=== PATIENT | female | born 1940 | race Caucasian/White ===

== ENCOUNTER 2021-12-24 07:46 | Emergency (ER) | payer OTHER, SELFPAY ==
--- NOTE | ~2021-12-24 | XR_ITS ---
XR foot LT min 3V DATE: 12/24/2021 08:04 INDICATION: Left foot pain and swelling TECHNIQUE: 4 views COMPARISON: None FINDINGS: Anterior and posterior tibial and dorsalis pedis artery calcifications in addition to some metatarsal artery calcification. Mild to moderate nonspecific soft tissue swelling of the foot. Osteopenia. Mild hallux valgus and bunion deformity. Mild osteoarthritis at the first metatarsophalangeal joint. Osteophytic change at some tarsal and tarsometatarsal joints. Minimal plantar calcaneal enthesopathy. No fracture, dislocation, periosteal reaction or bone destruction. IMPRESSION: Moderate soft tissue swelling Anterior and posterior tibial and dorsalis pedis artery and metatarsal artery calcifications; conside r diabetes Mild hallux valgus and bunion deformity Mild osteoarthritis at first metatarsophalangeal joint and some tarsal and tarsometatarsal joints Minimal plantar calcaneal enthesopathy Reviewed, dictated and finalized at location A. IMPRESSION: Moderate soft tissue swelling Anterior and posterior tibial and dorsalis pedis artery and metatarsal artery c alcifications; consider diabetes Mild hallux valgus and bunion deformity Mild osteoarthritis at first metatarsophalangeal joint and some tarsal and tars ometatarsal joints Minimal plantar calcaneal enthesopathy
[2021-12-24 07:46] VITALS: BP 193/63; PULSE 68; RESP 20; TEMP 37.2; O2SAT 97
--- NOTE | 2021-12-24 07:53 | ED.GENADULT ---
HPI - General Adult General Chief complaint: Extremity Problem,Nontraumatic Stated complaint: ambulance Time Seen by Provider: 12/24/21 07:51 History of Present Illness HPI narrative: Chelly is a 81F with a history of bladder cancer s/p treatment, pacemaker, HTN and gout that presented to the ED via EMS for left foot pain. She has had chronic pain in her left foot since 2014. It woke her up at 0400 this morning. Pain is worse on the anterior mid foot and goes up the leg. No recent injury. It is more painful than previous gout attacks. No prolonged sitting or immobilization. No CP, SOB or falls. Related Data Home Medications Medication Instructions Recorded Confirmed carvedilol 6.25 mg tablet 1 tablet PO DAILY 12/24/21 12/24/21 hydrocodone 10 mg-acetaminophen 1 tablet PO DIRECTED 12/24/21 12/24/21 325 mg tablet Allergies Allergy/AdvReac Type Severity Reaction Status Date / Time allopurinol Allergy Unknown RASH Verified 04/08/11 14:44 Review of Systems Review of Systems: All systems reviewed & are unremarkable except as noted in HPI and below Exam Const: General: healthy appearing and no acute distress Nutritional Appearance: well nourished HENMT: Head: normal to inspection Ears: external ears normal General nose exam: Normal external nose present Eyes: Conjunctivae: conjunctivae normal Pupils: Equal, round and reactive pupils present EOM: EOMs intact bilaterally Neck: Neck: normal visual inspection Chest: Chest palpation & inspection: normal inspection of the chest Resp: Effort & Inspection: normal respiratory effort Cardio: Rate: regular rate Skin: General skin exam: normal color Neuro: General: patient oriented x3 and moves all extremities Extrem: Other: Left foot was swollen and warm to the touch and was very TTP. No erythema noted. Psych: Mental Status: mental status grossly normal Course Course Emergency Course: Ordered [facility] for pain, bloodwork and radiographs IMPRESSION: Moderate soft tissue swelling Anterior and posterior tibial and dorsalis pedis artery and metatarsal artery calcifications; consider diabetes Mild hallux valgus and bunion deformity Mild osteoarthritis at first metatarsophalangeal joint and some tarsal and tarsometatarsal joints Minimal plantar calcaneal enthesopathy Labs showed elevated BNP, D-dimer and uric acid. As the swelling is unilateral and there is no respiratory distress I do not believe this to be CHF. As the pain goes up her leg and she has an elevated D-dimer she may have a DVT but US is not available today. However, given her history and the pain level it is likely gout. We discussed the need for blood thinners but she stated she cannot take any blood thinners but she does not know why. We discussed how I cannot rule out a blood clot until an US can be done and that a DVT could travel to the lungs and cause serious cardiopulmonary issues or . She expressed understanding but refused anticoagulation anyway. She did accept treatment for gout. She was given steroids as her kidney function is decreased CrCl less than 30. Vital Signs Vital signs: Vital Signs Temperature 98.9 F 12/24/21 07:46 Pulse Rate 68 12/24/21 07:46 Respiratory Rate 20 12/24/21 07:46 Blood Pressure 193/63 H 12/24/21 07:46 Pulse Oximetry 97 12/24/21 07:46 Oxygen Delivery Room Air 12/24/21 07:46 Temperature 98.9 F 12/24/21 07:46 Pulse Rate 68 12/24/21 07:46 Respiratory Rate 20 12/24/21 07:46 Blood Pressure 193/63 H 12/24/21 07:46 Pulse Oximetry 97 12/24/21 07:46 Oxygen Delivery Room Air 12/24/21 07:46 Medical Decision Making Vital Signs Vital Signs: Vital Signs Temperature 98.9 F 12/24/21 07:46 Pulse Rate 68 12/24/21 07:46 Respiratory Rate 20 12/24/21 07:46 Blood Pressure 193/63 H 12/24/21 07:46 Pulse Oximetry 97 12/24/21 07:46 Oxygen Delivery Room Air 12/24/21 07:46 Temperature 98.9 F 12/24/21 07
[2021-12-24 08:18] LABS: Basophils Absolute Auto 0.03 K/mm3 (0.00-0.10); Basophils Percent Auto 0.4 % (0.0-1.0); Eosinophils Absolute Auto 0.17 K/mm3 (0.02-0.50); Hematocrit 30.7 % (35.0-42.0); Immature Granulocyte Absolute 0.04 K/mm3 (0.00-0.00); Immature Granulocyte Percent A 0.5 % (0.0-0.0); Lymphocytes Absolute Auto 0.63 K/mm3 (1.10-4.50); Lymphocytes Percent Auto 7.4 % (18.0-42.0); Mean Corpuscular HGB Conc 32.6 g/dL (32.0-36.0); Mean Platelet Volume 11.4 fl (9.2-11.8); Monocytes Absolute Auto 0.39 K/mm3 (0.10-0.90); Monocytes Percent Auto 4.6 % (2.0-11.0); Neutrophils Absolute Auto 7.2 K/mm3 (1.7-7.2); Neutrophils Percent Auto 85.1 % (50.0-70.0); Platelet Count Result 140 K/mm3 (150-420); Red Blood Count 3.23 M/mm3 (4.20-5.40); Red Cell Distribution Width 13.4 % (11.6-14.4); White Blood Count 8.5 K/mm3 (4.8-10.8)
[2021-12-24] MEDS: HYDROcodone/acetaminophen (*CRX) 5-325 MG TABLET 1 TAB PO (08:22)
[2021-12-24 08:29] LABS: D Dimer 1.61 mg/L (0.19-0.50)
[2021-12-24 08:34] LABS: Alanine Aminotransferase 12 U/L (14-59); Albumin Level 3.6 g/dL (3.4-5.0); Alkaline Phosphatase 81 U/L (46-116); Anion Gap 8 mmol/L (8-16); Aspartate Amino Transferase 12 U/L (15-37); Bilirubin,Total 0.4 mg/dL (0.00-1.00); Blood Urea Nitrogen 32 mg/dL (7-18); Calcium 8.9 mg/dL (8.5-10.1); Carbon Dioxide 24 mmol/L (21-32); Chloride 110 mmol/L (98-108); Estimated CRCL calculation 19 ml/min; Estimated Glomerular Filt Rate 26; Glucose 100 mg/dL (70-99); NT Pro B Type Natriuretic Pept 5310 pg/mL (0-450); Osmolality Calculated 300 mOsm/kg (285-295); Potassium 4.3 mmol/L (3.5-5.1); Sodium 142 mmol/L (136-145); Total Protein 6.8 g/dL (6.4-8.2); Uric Acid 7.3 mg/dL (2.6-6.0)
[2021-12-24 08:35] LABS: CRP 0.3 mg/dL (0.0-0.9)
--- NOTE | 2021-12-24 09:52 | PC.NURSE ---
0900 extended wait period for xray report explained to pt. voiced understanding. 929 pt resting per cot. tv on. 952 dr blount in with pt. offered use of blood thinner. PT REFUSED ALL BLOOD THINNING MEDICATIONS
[2021-12-24 10:13] VITALS: BP 174/66; PULSE 74; RESP 20; TEMP 36.7; O2SAT 97
== END 2021-12-24 10:37 | disposition home or self-care (01) ==
PROVIDERS: Emergency Provider Family Medicine; PCP Internal Medicine
DX: M10.9 Gout, unspecified (principal); R79.1 Abnormal coagulation profile
CPT/HCPCS: 36415; 73630; 80053; 83880; 84550; 85025; 85055; 85380; 86140; 99283; A9270

== ENCOUNTER 2023-01-25 12:23 | Emergency (ER) | payer OTHER, SELFPAY ==
--- NOTE | ~2023-01-25 | XR_ITS ---
EXAMINATION: XR humerus RT DATE: 01/25/2023 12:38 INDICATION: Right upper arm injury and pain. TECHNIQUE: 2 views of right humerus were obtained. COMPARISON: None. FINDINGS: Bone alignment is normal. No fracture. There is mild osteoarthritis of acromioclavicular chelsea int and glenohumeral joint. IMPRESSION: 1. Polyarticular osteoarthritis. Reviewed, dictated and finalized at location B.
--- NOTE | 2023-01-25 12:30 | ED.FALL ---
HPI - Fall General Chief Complaint: Fall Stated Complaint: fall Time Seen by Provider: 01/25/23 12:24 Source: patient Mode of arrival: ambulatory Limitations: no limitations History of Present Illness HPI Narrative: patient is an 82-year-old female with a fall at home prior to arrival. Her fell backwards onto her and she sustained a right arm injury. No other injuries. MD complaint: fall Onset (ago): minute(s) (30) Fall from: standing Fall witnessed: yes, by family Place fall occurred: home Loss of consciousness: none Prolonged down time: no Symptoms prior to fall: none Context: tripped/slipped Location of injury: other ( Right upper extremity) Severity: moderate Severity scale (1-10): 4 Quality: sharp Associated symptoms (after fall): denies Related Data Home Medications Medication Instructions Recorded Confirmed carvedilol 6.25 mg tablet 1 tablet PO DAILY 12/24/21 01/25/23 hydrocodone 10 mg-acetaminophen 1 tablet PO DIRECTED 12/24/21 01/25/23 325 mg tablet furosemide 40 mg tablet 40 mg PO DAILY 01/25/23 01/25/23 Allergies Allergy/AdvReac Type Severity Reaction Status Date / Time allopurinol Allergy Unknown RASH Verified 01/25/23 12:40 Review of Systems Review of Systems: All systems reviewed & are unremarkable except as noted in HPI and below Constitutional: Constitutional: Reports no additional constitutional complaints Eyes: Eyes: Reports no additional eye complaints ENT: Reports system reviewed and no additional complaints, except as documented Cardiovascular: Cardiovascular: Reports no additional cardiovascular complaints Respiratory: Respiratory: Reports no additional respiratory complaints Gastrointestinal: Gastrointestinal: Reports no additional gastrointestinal complaints Genitourinary: Genitourinary: Reports no additional female genitourinary complaints Musculoskeletal: Musculoskeletal: Reports no additional musculoskeletal complaints Integumentary/Breasts: Skin/Breast: Reports system reviewed and no additional complaints, except as docu Neurologic: Reports system reviewed and no additional complaints, except as documented Psychiatric: Psychiatric: Reports no additional psychiatric complaints Endocrine: Endocrine: Reports no additional endocrine complaints Hematologic/Lymphatic: Hematologic/Lymphatic: Reports no additional hematologic/lymphatic complaints Allergic/Immunologic: Allergic/Immunologic: Reports no additional allergic/immunologic complaints Exam Const: General: healthy appearing Nutritional Appearance: well nourished HENMT: Head: normal to inspection Eyes: Conjunctivae: conjunctivae normal Pupils: Equal, round and reactive pupils present EOM: EOMs intact bilaterally Neck: Neck: normal visual inspection Chest: Chest palpation & inspection: normal inspection of the chest Resp: Effort & Inspection: normal respiratory effort Cardio: Rate: regular rate Rhythm: regular rhythm GI: GI Palp: Yes Soft to palpation and No Tenderness to palpation present (GI) : General: Yes bladder normal to palpation Back/Spine/Pelvis: Back: no CVA tenderness Skin: General skin exam: normal color Neuro: General: patient oriented x3, moves all extremities and no meningeal signs Extrem: General: normal to inspection Other: tender right upper extremity at the proximal humerus; distal neurovascular bundle intact Psych: Mental Status: mental status grossly normal Affect: normal affect Course Vital Signs Vital signs: Vital Signs Temperature 36.9 C 01/25/23 12:34 Pulse Rate 65 01/25/23 12:34 Respiratory Rate 20 01/25/23 12:34 Blood Pressure 166/88 H 01/25/23 12:34 Pulse Oximetry 95 01/25/23 12:34 Oxygen Delivery Room Air 01/25/23 12:34 Temperature 36.9 C 01/25/23 12:34 Pulse Rate 65 01/25/23 12:34 Respiratory Rate 20 01/25/23 12:34 Blood Pressure 166/88 H 01/25/23 12:34 Pulse Oximetry 95 01/25/23 12:34 Ox
[2023-01-25 12:34] VITALS: BP 166/88; PULSE 65; RESP 20; TEMP 36.9; O2SAT 95
[2023-01-25 13:10] VITALS: BP 160/80; PULSE 66; RESP 20; TEMP 37; O2SAT 96
== END 2023-01-25 13:17 | disposition home or self-care (01) ==
PROVIDERS: Emergency Provider Emergency Medicine; PCP Internal Medicine
DX: S40.021A Contusion of right upper arm, initial encounter (principal); Z79.891 Long term (current) use of opiate analgesic; W01.0XXA Fall on same level from slipping, tripping and stumbling without subsequent striking against object, initial encounter; Y92.009 Unspecified place in unspecified non-institutional (private) residence as the place of occurrence of the external cause
CPT/HCPCS: 73060; 99283; A4565